=== PATIENT | female | born 1980 | race Two or more races ===

== ENCOUNTER → 2016-08-10 | Outpatient (CLI) | payer OTHER ==
--- NOTE | 2016-08-10 13:26 | DX ---
PA and Lateral Chest August 10, 2016 Indication: Cough. Comparison: None. Findings: Lungs are well-aerated and clear, except for minimal peribronchial thickening in the lower lung zones. No consolidation, edema, mass or effusion. Heart size is normal. Impression: Normal, except for minimal airways disease.
== END ==
LOC: BMCIMAGING 12:03
PROVIDERS: ATTEND Internal Medicine Endocrinology, Diabetes & Metabolism
DX: R05 Cough (principal)

== ENCOUNTER → 2016-09-02 | Outpatient (CLI) | payer OTHER ==
--- NOTE | 2016-09-03 12:27 | MR ---
MRI lower extremity, left hip History: Left hip pain. ICD-10 code M25.559. Comparisons: None Technique: MRI was performed of the pelvis and left hip using a 3 [employer] MRI system. Large field-of-vi ew coronal and axial imaging was obtained with standard imaging sequences. High-resolution small fiel d-of-view imaging was obtained of the hip with oblique axial, oblique coronal, and sagittal images wi th standard imaging sequences. Findings: Mild osseous fullness in the anterosuperior femoral head neck junction. Alpha ankle is at t he upper limits of normal at 55 degrees. No focal osseous bump. Lateral center edge angle measures 30 degrees. Small smooth partial tear is seen at the anterosuperior labrum in the 1-2 o'clock position. No significant cartilage attenuation in the femoral head or acetabulum. No significant joint effusio n. Capsule is unremarkable. No significant bone marrow abnormality is visualized. No evidence of avascular necrosis of the femora l head. No evidence for a stress fracture of the femoral neck. There is abnormal signal intensity in the anterosuperior labrum of the right hip on the large [id number]-[id number] images with an intralabrial or perilabral cyst. No evidence for sacroiliitis. A 4-cm complex cyst with probable hemorrhage is seen o n the right with a mildly thickened wall measuring 4 cm. Partially included in the [id number] is a probable 3-cm intramural mass in the fundus, likely representing a leiomyoma. Visualized musculature and tendons are unremarkable. Impression: 1. Small smooth partial tear anterosuperior labrum left hip. 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 2. On the large iknup-ru-xtct images there are also appears to be a tear in the anterosuperior labrum right hip and perilabral cyst. 3. 4-cm mildly complex probable hemorrhagic cyst right ovary. Recommend follow-up ultrasound in 6-8 w eeks, and also evaluate a probable leiomyoma at the fundus of the uterus.
== END ==
LOC: FIMAGING 10:22
PROVIDERS: ATTEND Orthopaedic Surgery
DX: S73.192A Other sprain of left hip, initial encounter (principal); N83.201 Unspecified ovarian cyst, right side

== ENCOUNTER → 2016-09-21 | Outpatient (CLI) | payer OTHER | LOC: CIMAGING 10:52 | PROVIDERS: ATTEND Family Medicine | DX: N92.0 Excessive and frequent menstruation with regular cycle (principal); D25.9 Leiomyoma of uterus, unspecified | CPT/HCPCS: 76856-PO ==

== ENCOUNTER → 2016-10-19 | Outpatient (CLI) | payer OTHER ==
[~2016-10-19] MED LIST: GADOBUTROL 10 ML VIAL IVP ONE
== END ==
LOC: FIMAGING 11:50
PROVIDERS: ATTEND Physical Medicine & Rehabilitation
DX: M48.02 Spinal stenosis, cervical region (principal); M50.31 Other cervical disc degeneration, high cervical region; M46.92 Unspecified inflammatory spondylopathy, cervical region; Q79.6 Ehlers-Danlos syndromes; Z98.1 Arthrodesis status
CPT/HCPCS: A9585

== ENCOUNTER 2017-07-05 18:54 | Emergency (ER) | payer OTHER ==
[2017-07-05 19:07] VITALS: RESP 20
[2017-07-05] MEDS ORDERED: METOCLOPRAMIDE 10 MG/2 ML VIAL IVP ONE (19:17)
[2017-07-05] MEDS ORDERED: NS 1,000 ML IV ONE (19:17)
[2017-07-05] MEDS ORDERED: DIAZEPAM 10 MG/2 ML SYR IVP ONE ×2 (19:19→19:56)
--- NOTE | 2017-07-05 19:24 | EDPHY ---
H & P Stated Complaint: spine sx 3 weeks ago c/o neck pain, DA[facility] Time Seen by Provider: 07/05/17 19:02 HPI/ROS: This patient complains of neck pain and migraine headache. Her recent history is notable for cervical fusion - C3 through [address] Del Cid 3 weeks ago. 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 She did get relief from Imitrex, Valium and oxycodone. However she awakened this morning at 4:00 a.m. with a 9/10 frontal headache that felt "like a claw-consistent with prior migraines associated photophobia and nausea. She reports associated feeling of neck pain and tight muscles. She reports that she does get neck pain with her migraines but that this feels more like the postsurgical pain in her typical migraine neck pain. She had 1 episode of nausea vomiting at 1:00 p.m. today. Thereafter she did tolerate around of Valium, Imitrex and oxycodone IR at 3:40 p.m. but did have significant improvement with the meds this time and came in for evaluation with ongoing 8/10 intensity left frontal headache and moderate neck pain. She notices no positional changes in her headache or other exacerbating or alleviating factors. She put a call into Dr. Del Cid office and encouraged her to come in for further evaluation. Her significant other drove her here by private vehicle. ROS: Constitutional: No fevers. No significant fatigue. HEENT: No recent URI symptoms. Neuro: Patient reports blurry vision associated with her headache which is not as common for her with migraines but has happened before. She has no focal numbness tingling or weakness. No confusion. Integumentary: No skin rash. Pulmonary: No cough shortness of breath Cardiovascular: No lightheadedness or other complaints GI: Ongoing nausea currently. Normal bowel movements recently. : No complaints Complete review of symptoms otherwise negative Source: Patient Exam Limitations: No limitations - Personal History Current Tetanus/Diphtheria Vaccine: Yes Current Tetanus Diphtheria and Acellular Pertussis (TDAP): Yes Tetanus Vaccine Date: < 10 years - Medical/Surgical History Hx Asthma: No Hx Chronic Respiratory Disease: No Hx Diabetes: No Hx Cardiac Disease: No Hx Renal Disease: No Hx Cirrhosis: No Hx Alcoholism: No Hx HIV/AIDS: No Hx Splenectomy or Spleen Trauma: No Other PMH: EDS TYPE 3, NECK, SHOULDER, TMJ SURG - Social History Smoking Status: Former smoker Alcohol Use: Rarely Drug Use: None - Physical Exam Exam: Physical exam: Vital signs are normal General: Patient is in no acute distress. HEENT: Is no external evidence of trauma on exam. Eyes: Pupils are equal and reactive to light. Extraocular motions are intact. Optic fundi: Clear with no papilledema or hemorrhage. Nose atraumatic. Ears: Clear bilaterally with no hemotympanum. Oropharynx: No dental trauma or malocclusion. No intraoral lacerations. Eyes: Pupils are equal and reactive to light. Extraocular motions are intact. Optic fundi: Clear with no papilledema or hemorrhage. Lungs: Clear to auscultation bilaterally Neck: She has clean dry intact anterior surgical wound that is healing well without erythema discharge or other abnormal findings. Her neck musculature- paraspinous muscles bilaterally are tender and seem to have mild spasm. In terms of the supple aspect of her neck she has limited range of motion due to her fusion that she feels is approximately baseline currently. No pain radiating down her back with 4 neck flexion. Kernig's test is negative bilaterally. Cardiac: Regular rate and rhythm no murmur gallop or rub. Abdomen: Soft nontender no organomegaly Neuro: GCS of 15. Cranial nerves II through XII intact. Cerebellar exam is normal as judged by symmetric rapid hand movements bilaterally. No pronator drift. No sensory or motor deficits are appreciated. Initial differential diagnosis: Migraine, tension headache, [employer] lesion, intracranial bleed, dural tear Constitutional: Initial Vital Signs Temperature (C) 37 C 07/05/17 19:04 Heart Rate 92 07/05/17 19:04 Respiratory Rate 20 07/05/17 19:04 Blood Pressure 147/104 H 07/05/17 19:04 O2 Sat (%) 97 07/05/17 19:04 O2 Delivery Mode Room Air Allergies/Adverse Reactions: No Known Allergies Allergy (Verified 07/05/17 19:00) Home Medications: Medication Instructions Recorded IMITREX 07/05/17 Ondansetron Odt [Zofran Odt] 4 - 8 mg PO Q4PRN PRN #4 tab 12/08/17 Tylenol 07/05/17 Valium 5 MG (*) 07/05/17 oxyCODONE IR 07/05/17 Medical Decision Making ED Course/Re-evaluation: IV normal saline bolus Reglan and Benadryl IV Valium 2mg IV At 8:00 p.m. I recheck the patient and she reports that she has improvement in her nausea. She only has mild improvement in her headache down to 5/10 currently. She is then given Tylenol p.o. and an additional dose of Valium IV. I reviewed her normal labs the patient. Patient has a normal CBC, normal ESR and no significant abnormalities on her basic metabolic panel. Discussion: After workup and evaluation, I feel this patient has a migraine headache with worsening of her postop neck pain is a part of her migraine syndrome. I counseled regarding this. Given no elevation of white count, no fevers, normal ESR I do not think she has osteomyelitis, [employer] infection, dural tear other concerning findings. Patient appears significantly here with treatment and is comfortable with plan to proceed home with Zofran for any nausea, continue her Valium, Imitrex and if needed Percocet. She will follow up with Dr. Del Cid for any ongoing neck pain and her stands the need to return emergency department should she have any significant worsening of her symptoms despite the treatment plan. - Data Points Laboratory Results: Laboratory Results 07/05/17 19:30 07/05/17 19:30 Medications Given: Discontinued Medications Acetaminophen (Tylenol) 1,000 mg PO EDNOW ONE Stop: 07/05/17 19:57 Last Admin: 07/05/17 20:07 Dose: Not Given Acetaminophen (Tylenol) 650 mg PO EDNOW ONE Stop: 07/05/17 20:04 Last Admin: 07/05/17 20:04 Dose: 650 mg Diazepam (Valium Injection) 2 mg IVP EDNOW ONE Stop: 07/05/17 19:20 Last Admin: 07/05/17 19:30 Dose: 2 mg Diazepam (Valium Injection) 2 mg IVP EDNOW ONE Stop: 07/05/17 19:57 Last Admin: 07/05/17 20:03 Dose: 2 mg Diphenhydramine HCl (Benadryl Injection) 25 mg IVP EDNOW ONE Stop: 07/05/17 19:18 Last Admin: 07/05/17 19:30 Dose: 25 mg Sodium Chloride (Ns) 1,000 mls @ 0 mls/hr IV ONCE ONE; Wide Open PRN Reason: Protocol Stop: 07/05/17 19:18 Last Admin: 07/05/17 19:31 Dose: 1,000 mls Metoclopramide HCl (Reglan Injection) 10 mg IVP EDNOW ONE Stop: 07/05/17 19:18 Last Admin: 07/05/17 19:30 Dose: 10 mg Ondansetron HCl (Zofran Odt 4 Mg Prepack#2) 1 btl TAKEHOME EDNOW ONE Stop: 07/05/17 20:43 Last Admin: 07/05/17 20:51 Dose: 1 btl Departure - Departure Disposition: Home, Routine, Self-Care Clinical Impression: Migraine headache, Neck pain, Vomiting Condition: Good Instructions: Ondansetron (By mouth), Migraine Headache (ED) Additional Instructions: Diagnosis: Migraine headache 2. Vomiting 3. Neck pain Plan: Zofran if needed for nausea vomiting Continue current medications. Add Tylenol as needed Follow up with Dr. Del Cid Return emergency department for any significant worsening despite the treatment plan. Referrals: Jennie Stewart MD [Primary Care Provider] - As per Instructions Prescriptions: Ondansetron Odt [Zofran Odt] 4 - 8 mg PO Q4PRN PRN #4 tab PRN Reason: Vomiting
[2017-07-05 19:33] LABS: % IMMATURE GRANULYOCYTES 0.2 % (0.0-1.1); ABSOLUTE IMMATURE GRANULOCYTES 0.01 10^3/uL (0.00-0.10); ADD DIFF? NO; ADD MORPH? NO; ADD SCAN? NO; ATYPICAL LYMPHOCYTE FLAG 0 (0-99); FRAGMENT RBC FLAG 0 (0-99); HEMATOCRIT 42.4 % (38.0-47.0); HEMOGLOBIN 14.8 g/dL (12.6-16.3); LEFT SHIFT FLG 0 (0-99); LIPEMIA HEMOLYSIS FLAG 90 (0-99); MEAN CELL HEMOGLOBIN 31.8 pg (27.9-34.1); MEAN CELL HEMOGLOBIN CONCENTR. 34.9 g/dL (32.4-36.7); MEAN PLATELET VOLUME 9.8 fL (8.7-11.7); PLATELET CLUMPS FLAG 0 (0-99); PLATELET COUNT 292 10^3/uL (150-400); RED BLOOD CELL COUNT 4.66 10^6/uL (4.18-5.33); RED CELL DISTRIBUTION WIDTH 11.9 % (11.5-15.2)
[2017-07-05 19:38] LABS: SEDIMENTATION RATE 9 MM/HR (0-20)
[2017-07-05 19:44] LABS: ANION GAP 17 mEq/L (8-16); CALCIUM 9.9 mg/dL (8.5-10.4); CARBON DIOXIDE 26 mEq/l (22-31); CHLORIDE 101 mEq/L (97-110); CREATININE 0.9 mg/dL (0.6-1.0); GLOMERULAR FILTRATION RATE > 60; GLUCOSE 87 mg/dL (70-100); SODIUM 144 mEq/L (134-144)
[2017-07-05] MEDS ORDERED: ACETAMINOPHEN 500 MG TAB PO ONE (19:56)
[2017-07-05] MEDS ORDERED: ACETAMINOPHEN 325 MG TAB ONE (20:02)
[2017-07-05] MEDS ORDERED: ACETAMINOPHEN 325 MG TAB PO ONE (20:03)
[2017-07-05] MEDS ORDERED: ONDANSETRON 4MG PREPACK#2 BTL TAKEHOME ONE (20:42)
[2017-07-05 20:48] VITALS: BP 138/67; PULSE 86; TEMP 98.2; O2SAT 94
== END 2017-07-05 20:58 | disposition home or self-care (01) ==
LOC: CED 18:54
DX: M54.2 Cervicalgia (principal); G43.909 Migraine, unspecified, not intractable, without status migrainosus; E86.9 Volume depletion, unspecified; Z87.891 Personal history of nicotine dependence
CPT/HCPCS: 80048-PO; 85025-PO; 85652-PO; 96374; J1200; J2765

== ENCOUNTER → 2017-07-05 | Outpatient (CLI) | payer OTHER | LOC: FIMAGING 13:51 | PROVIDERS: ATTEND Orthopaedic Surgery Orthopaedic Surgery of the Spine | DX: M54.5 Low back pain (principal) ==